=== PATIENT | female | born 1990 | race African-American/Black ===

== ENCOUNTER 2024-07-02 19:00 | Emergency (ER) | payer MEDICARE ==
[2024-07-02] MEDS ORDERED: Acetaminophen 500 MG TAB ONE (21:20)
== END 2024-07-02 21:36 | disposition home or self-care (01) ==
LOC: CSHERS 19:00
DX: J11.1 Influenza due to unidentified influenza virus with other respiratory manifestations (principal); B20 Human immunodeficiency virus [HIV] disease
CPT/HCPCS: 87428; 99283

== ENCOUNTER 2025-04-15 18:39 | Emergency (ER) | payer MEDICARE | END 2025-04-15 20:14 | LOC: CSHERS 18:39 | DX: R09.81 Nasal congestion (principal); B20 Human immunodeficiency virus [HIV] disease | CPT/HCPCS: 87081; 87428; 87430; 99283 ==